=== PATIENT | female | born 1980 | race Caucasian/White ===

== ENCOUNTER 2020-04-08 09:25 | Outpatient (CLI) | payer BC, SELFPAY ==
[2020-04-08 09:58] LABS: HCT 41.6 % (36.0-46.0); HGB 13.9 g/dL (11.2-15.7); MCH 31.4 pg (27.0-33.0); MCHC 33.4 % (32.0-36.0); MCV 94.1 fL (80-95); MPV 10.5 fL (8.0-11.0); Platelet Count 151 10^3/uL (130-400); RBC 4.42 10^6/uL (3.93-5.22); WBC 4.32 10^3/uL (4.4-10.8)
[2020-04-08 10:23] LABS: TSH 2.68 uIU/mL (0.36-3.74)
[2020-04-08 10:24] LABS: HCG Quant, Pregnancy < 1 mIU/mL (1-3)
== END 2020-04-08 09:26 | disposition home or self-care (01) ==
DX: N92.6 Irregular menstruation, unspecified (principal)
CPT/HCPCS: 36415; 85027; 84443; 84702

== ENCOUNTER 2020-05-02 20:41 | Outpatient (REF) | payer BC, SELFPAY ==
[2020-05-02 21:12] LABS: ALT 31 U/L (14-59); AST 16 U/L (15-37); Albumin 4.2 g/dL (3.4-5.0); Alkaline Phosphatase 45 U/L (46-116); Anion Gap 10.7 mmol/L (3-11); BUN 16 mg/dL (7-18); Bilirubin, Total 0.5 mg/dL (0.2-1.0); CO2 26.3 mmol/L (21.0-32.0); CREATININE 0.7 mg/dL (0.55-1.02); Calcium 9.3 mg/dL (8.5-10.1); Chloride 104 mmol/L (98-107); Glucose 101 mg/dL (74-106); Lipase 193 U/L (73-393); Potassium 4.5 mmol/L (3.5-5.1); Sodium 141 mmol/L (136-145); Total Protein 7.4 g/dL (6.4-8.2)
== END 2020-05-02 20:42 | disposition home or self-care (01) ==
LOC: LBN 20:41
PROVIDERS: Visit Provider Nurse Practitioner Family
DX: R11.0 Nausea (principal)
CPT/HCPCS: 80053; 83690

== ENCOUNTER 2020-05-07 02:51 | Outpatient (CLI) | payer BC, SELFPAY | END 2020-05-07 02:52 | disposition home or self-care (01) | LOC: LBO 02:51 | PROVIDERS: Visit Provider Nurse Practitioner Family | DX: R11.0 Nausea (principal); R68.81 Early satiety; F45.8 Other somatoform disorders | CPT/HCPCS: 83013 ==

== ENCOUNTER 2020-05-15 01:35 | Outpatient (CLI) | payer BC, SELFPAY ==
--- NOTE | 2020-05-15 10:48 | DI.RAD_ITS ---
EXAM: RF UPPER GI SERIES CLINICAL HISTORY: CHRONIC NAUSEA, R11.0 TECHNIQUE: 2D and realtime digital imaging was performed. CONTRAST MATERIAL: Oral barium Oral water soluble contrast was administered. COMPARISON: No exams were available for comparison FINDINGS: ESOPHAGUS: Esophagus was studied both standing and recumbent both with single and air contrast techni que. Swallowing mechanism appeared grossly intact. No aspiration. No Zenker's diverticulum. No obvious hypertense upper esophageal sphincter/cricopharyngeus. There are no fixed lesions evident in the esophagus. No hiatal hernia. No Schatzki ring. No achala asia. There was also no GE reflux demonstrated during this study. No tertiary waves demonstrated. GE junction appears unremarkable. STOMACH: No fixed lesions. No ulcer craters evident. DUODENUM: No ulcer crater. No stricture evident. Normal peristalsis demonstrated. Left upper quadrant jejunal loops appear unremarkable. No malrotation. IMPRESSION: No significant radiograph findings in the esophagus, stomach, and duodenum. If clinically indicated further study with endoscopy can be performed. In addition, if there is diff iculty swallowing and modified barium swallow study with speech therapist also be performed. In muna tion, given her symptom one might consider thyroid ultrasound examination to ensure that there is no extrinsic compression.
[2020-05-15] MEDS: Barium Sulfate 60% W/V 355 ML BTL PO (11:25)
== END 2020-05-15 01:55 ==
PROVIDERS: Visit Provider Nurse Practitioner Family
DX: R11.0 Nausea (principal)
CPT/HCPCS: 74246; J3490